=== PATIENT | female | born 1960 | race African-American/Black ===

== ENCOUNTER 2019-07-27 19:12 | Observation (INO) ==
[2019-07-27] MEDS ORDERED: ONDANSETRON 4 MG/2 ML VIAL IV STA (21:33)
[2019-07-27] MEDS ORDERED: HYDROmorphone 2 MG/1 ML VIAL IV STA (21:33)
[2019-07-27] MEDS ORDERED: SODIUM CHLORIDE 0.9% 500 ML IV STA (21:33)
[2019-07-27] MEDS ORDERED: PIPERACILLIN/TAZOBACTAM 3,375 MG in SODIUM CHLORIDE 0.9% 100 ML IV STA (21:33)
[2019-07-27 21:57] LABS: Basophils % 0.2 % (0.0-0.8); Eosinophils # 0.2 10*3/uL (0.0-0.87); Eosinophils % 1.9 % (0.00-10.9); Hematocrit 34.3 VOL% (35.7-47.0); Hemoglobin 11.6 GM/DL (12.0-16.0); Immature Granulocytes % 0.4 %; Immature Granulocytes Absolute 0.04 #; Lymphocytes # 1.6 10*3/uL (1.4-4.0); Lymphocytes % 15.4 % (21.3-54.2); Mean Corpuscular HGB Conc 33.8 GM/DL (32-36); Mean Corpuscular Volume 74.2 FL (87-102); Mean Platelet Volume 10.7 FL (9.6-12.0); Monocytes % 6.1 % (1.7-12.7); Platelet Count 227 T/CUMM (130-400); Red Blood Count 4.62 MC/CUMM (3.8-5.5); Red Cell Distribution Width 15.1 % (9.3-17.3); White Blood Count 10.3 T/CUMM (4-12)
[2019-07-27 22:07] LABS: PT Patient Result 10.4 SECS (9.6-12.2)
[2019-07-27 22:11] LABS: Albumin 3.4 G/DL (3.4-5.0); Bilirubin,Total 0.8 MG/DL (0.2-1.0); Calcium 8.8 MG/DL (8.5-10.1); Osmolality,Calculated 285.2 MOS/KG (273-304); Total Protein 8.6 G/DL (6.4-8.3)
[2019-07-27] MEDS ORDERED: GLUCAGON 1 MG VIAL IM PRN (23:45)
[2019-07-27] MEDS ORDERED: DEXTROSE 50% 25 GM/50 ML SYRINGE IV PRN (23:45)
[2019-07-28] MEDS: SODIUM CHLORIDE 0.9% 1,000 ML IV SCH ×2 (01:31→12:27)
[2019-07-28] MEDS: INSULIN REGULAR 100 UNIT/ML SUBCUT SCH ×5 (01:31→22:54)
[2019-07-28] MEDS: ACETAMINOPHEN 325 MG TABLET PO PRN (01:32)
[2019-07-28] MEDS: ONDANSETRON 4 MG/2 ML VIAL IV PRN ×3 (01:32→23:00)
[2019-07-28] MEDS: HYDROmorphone 2 MG/1 ML VIAL IV PRN ×6 (01:44→22:58)
[2019-07-28] MEDS: PIPERACILLIN/TAZOBACTAM 3,375 MG in SODIUM CHLORIDE 0.9% 100 ML IV SCH ×3 (05:30→22:56)
[2019-07-28 05:40] LABS: Basophils % 0.2 % (0.0-0.8); Eosinophils # 0.1 10*3/uL (0.0-0.87); Eosinophils % 0.5 % (0.00-10.9); Hematocrit 29.1 VOL% (35.7-47.0); Hemoglobin 9.9 GM/DL (12.0-16.0); Immature Granulocytes % 0.5 %; Immature Granulocytes Absolute 0.06 #; Lymphocytes # 1.2 10*3/uL (1.4-4.0); Lymphocytes % 10.9 % (21.3-54.2); Mean Corpuscular Volume 73.7 FL (87-102); Mean Platelet Volume 10.9 FL (9.6-12.0); Monocytes % 6.5 % (1.7-12.7); Neutrophils % 81.4 % (38.7-73.9); Platelet Count 185 T/CUMM (130-400); Red Blood Count 3.95 MC/CUMM (3.8-5.5); Red Cell Distribution Width 15.1 % (9.3-17.3); White Blood Count 11.1 T/CUMM (4-12)
[2019-07-28 06:03] LABS: Albumin 2.9 G/DL (3.4-5.0); Calcium 8.4 MG/DL (8.5-10.1); Osmolality,Calculated 289.8 MOS/KG (273-304); Total Protein 7.3 G/DL (6.4-8.3)
[2019-07-28] MEDS: PANTOPRAZOLE 40 MG TABLET PO SCH (10:08)
[2019-07-28] MEDS: DOCUSATE SODIUM 100 MG CAPSULE PO SCH ×2 (10:09→22:58)
[2019-07-28] MEDS ORDERED: LIDOCAINE 1%/EPI INJ 20 ML VIAL ONE (10:21)
[2019-07-28] MEDS ORDERED: ONDANSETRON 4 MG/2 ML VIAL ONE ×2 (11:58→12:05)
[2019-07-28] MEDS ORDERED: LIDOCAINE 2% 5 ML VIAL ONE (11:58)
[2019-07-28] MEDS ORDERED: SEVOFLURANE 1 UNIT/15 MINUTE INH ONE (11:58)
[2019-07-28] MEDS ORDERED: SUCCINYLCHOLINE 200 MG/10 ML VIAL ONE (11:58)
[2019-07-28] MEDS ORDERED: fentaNYL 100 MCG/2 ML VIAL ONE (11:58)
[2019-07-28] MEDS ORDERED: ROCURONIUM 100 MG/10 ML VIAL IV ONE (11:58)
[2019-07-28] MEDS ORDERED: propofoL 200 MG/20 ML VIAL IV ONE (11:58)
[2019-07-28] MEDS ORDERED: ONDANSETRON 4 MG/2 ML VIAL IV PRN (12:04)
[2019-07-28] MEDS ORDERED: HYDROmorphone 2 MG/1 ML VIAL ONE (12:05)
[2019-07-28] MEDS ORDERED: DEXTROSE 50% 25 GM/50 ML VIAL IV PRN (14:03)
[2019-07-28] MEDS ORDERED: GLUCAGON 1 MG VIAL IM PRN (14:03)
[2019-07-28] MEDS ORDERED: DEXTROSE 10% 250 ML BAG IV PRN (14:18)
[2019-07-28] MEDS: INSULIN GLARGINE 100 UNIT/ML SUBCUT SCH (22:57)
[2019-07-28] MEDS: INSULIN ASPART PROTAMINE/ASPART 70/30 100 UNIT/ML SUBCUT SCH (22:58)
[2019-07-29] MEDS: HYDROmorphone 2 MG/1 ML VIAL IV PRN ×3 (02:58→18:14)
[2019-07-29 05:06] LABS: Basophils % 0.3 % (0.0-0.8); Eosinophils # 0.2 10*3/uL (0.0-0.87); Eosinophils % 2.4 % (0.00-10.9); Hematocrit 26.3 VOL% (35.7-47.0); Hemoglobin 8.9 GM/DL (12.0-16.0); Immature Granulocytes % 0.5 %; Immature Granulocytes Absolute 0.05 #; Lymphocytes # 1.4 10*3/uL (1.4-4.0); Lymphocytes % 14.6 % (21.3-54.2); Mean Corpuscular HGB Conc 33.8 GM/DL (32-36); Mean Corpuscular Volume 74.7 FL (87-102); Mean Platelet Volume 11.5 FL (9.6-12.0); Monocytes % 7.5 % (1.7-12.7); Neutrophils % 74.7 % (38.7-73.9); Platelet Count 167 T/CUMM (130-400); Red Blood Count 3.52 MC/CUMM (3.8-5.5); White Blood Count 9.6 T/CUMM (4-12)
[2019-07-29] MEDS: PIPERACILLIN/TAZOBACTAM 3,375 MG in SODIUM CHLORIDE 0.9% 100 ML IV SCH ×3 (05:06→21:10)
[2019-07-29] MEDS: ACETAMINOPHEN 325 MG TABLET PO PRN (05:09)
[2019-07-29] MEDS: INSULIN REGULAR 100 UNIT/ML SUBCUT SCH ×3 (06:06→18:20)
[2019-07-29] MEDS: LOSARTAN 50 MG TABLET PO SCH (08:51)
[2019-07-29] MEDS: DOCUSATE SODIUM 100 MG CAPSULE PO SCH ×2 (08:51→21:10)
[2019-07-29] MEDS: INSULIN ASPART PROTAMINE/ASPART 70/30 100 UNIT/ML SUBCUT SCH ×2 (08:51→21:08)
[2019-07-29] MEDS: PANTOPRAZOLE 40 MG TABLET PO SCH (08:51)
[2019-07-29] MEDS: SODIUM CHLORIDE 0.9% 1,000 ML IV SCH ×2 (08:52→16:33)
[2019-07-29 12:06] LABS: Hematocrit 27.4 VOL% (35.7-47.0); Hemoglobin 9.2 GM/DL (12.0-16.0)
[2019-07-29] MEDS: INSULIN GLARGINE 100 UNIT/ML SUBCUT SCH (21:09)
[2019-07-30] MEDS: INSULIN REGULAR 100 UNIT/ML SUBCUT SCH ×3 (00:37→11:36)
[2019-07-30] MEDS: PIPERACILLIN/TAZOBACTAM 3,375 MG in SODIUM CHLORIDE 0.9% 100 ML IV SCH (04:53)
[2019-07-30] MEDS: ACETAMINOPHEN 325 MG TABLET PO PRN (04:54)
[2019-07-30] MEDS: SODIUM CHLORIDE 0.9% 1,000 ML IV SCH (04:55)
[2019-07-30] MEDS: LOSARTAN 50 MG TABLET PO SCH (08:44)
[2019-07-30] MEDS: PANTOPRAZOLE 40 MG TABLET PO SCH (08:44)
[2019-07-30] MEDS: DOCUSATE SODIUM 100 MG CAPSULE PO SCH (08:44)
[2019-07-30] MEDS: INSULIN ASPART PROTAMINE/ASPART 70/30 100 UNIT/ML SUBCUT SCH (08:45)
[2019-07-30] MEDS ORDERED: SODIUM HYPOCHLORITE 0.25% IRRIG 473 ML BOTTLE TOP SCH (10:18)
[2019-07-30 11:04] VITALS: BP 119/72
== END 2019-07-30 13:35 | disposition home health service (06) ==
LOC: N.EDINP 19:12 → N.ED 19:12 → N.5E 23:51
PROVIDERS: ADMIT Family Medicine; ATTEND Family Medicine